=== PATIENT | female | born 1960 | race Caucasian/White ===

== ENCOUNTER 2016-08-03 15:24 | Inpatient (IN) | payer SELFPAY ==
[~2016-08-03] VITALS: Ht 182.9 cm; Wt 185.4 kg
[~2016-08-03 15:24] MED LIST: ASPIRIN 81M81 MG/TA2 PO; AVONEX33 MCG IM; CLINDAMYCI300 MG/50 IV; CLINDAMYCIN300 MG PO; CYMBALTA 60MG60 MG PO; EC NAPROSYN500 MG PO; FERROUS SULFATE; FLEXERIL 1010 MG/TAB PO; FLEXERIL10 MG PO; LEVOXYL0.3 MG PO; LIPITOR20 MG PO; MAXALT MLT5 MG PO; MEDROL 4MG DOSPA4 MG PO; MOTRIN800 MG PO; NAPROSYN500 MG PO; NAPROXEN500 M1 PO; NORCO 325 MG-51 TAB PO; PLAVIX 75MG TAB75 MG PO; ROXICODONE 55 MG/TAB PO; SIMVASTATIN40 MG PO; SYNTHROID 0.0.025 MG PO; SYNTHROID0.2 M1 PO; SYNTHROID0.3 MG PO; ULTRAM 50MG TAB50 MG PO; VITAMIN C BUFF500 MG PO; VITAMIN D NATU400 IU PO
[2016-08-03 16:37] LABS: BASO # 0.1 (0.0-0.2); BASO % 0.6 % (0.0-2.0); EOS # 0.1 (0.0-0.7); EOS % 1.4 % (0-4.0); GRAN # 5.1 (1.4-6.5); GRAN % 64.9 % (42.2-75.2); HEMATOCRIT 43.5 % (37.0-47.0); HEMOGLOBIN 14.5 g/dl (12.5-16.0); LYMPH # 2.3 (1.2-3.4); LYMPH % 29.1 % (20.0-51.0); MEAN CELL VOLUME 91 fl (80.0-100.0); MEAN CORPUSCULAR HEMOGLOBIN 30 pg (27.0-31.0); MEAN CORPUSCULAR HGB CONC 33 g/dl (33.0-37.0); MEAN PLATELET VOLUME 11.8 fl (7.4-10.4); MONO # 0.3 (0.1-0.6); MONO % 3.7 % (1.7-9.3); PLATELET COUNT 215 K/mm3 (130-400); RED BLOOD COUNT 4.79 M/mm3 (4.10-5.30); REDCELL DISTRIBUTION WIDTH-CV 13.2 % (11.5-14.5); WHITE BLOOD COUNT 7.9 K/mm3 (4.8-10.8)
[2016-08-03 16:48] LABS: ADJUSTED CALCIUM 9.5 mg/dL (8.4-10.2); ALANINE AMINOTRANSFERASE 74 U/L (9-52); ALKALINE PHOSPHATASE 133 U/L (50-136); ANION GAP 12 mmol/L (7-16); BILIRUBIN,TOTAL 0.7 mg/dL (0.0-1.0); BLOOD UREA NITROGEN 15 mg/dL (7-17); CALCIUM 9.5 mg/dL (8.4-10.2); CARBON DIOXIDE 23 mmol/L (22-30); CHLORIDE 104 mmol/L (98-107); CREATINE KINASE 82 U/L (30-135); CREATININE, serum 0.96 mg/dL (0.52-1.25); GLUCOSE 97 mg/dL (74-106); POTASSIUM 3.9 mmol/L (3.4-5.0); SODIUM 140 mmol/L (137-145); TOTAL PROTEIN 7.4 gm/dL (6.4-8.2)
[2016-08-03 16:53] LABS: INR 1.3 (0.8-3.0)
[2016-08-03 17:00] LABS: TROPONIN-I < 0.012 ng/mL (0.000-0.034)
[2016-08-03] MEDS ORDERED: SYNTHROID0.2 MG/TAB PO (17:58)
[2016-08-03 20:09] VITALS: BP 121/62; PULSE 71; TEMP 97.8
[2016-08-04] VITALS (7 sets, daily range): BP systolic 100–132; BP diastolic 32–67; PULSE 61–69; TEMP 97.7–98.5
[2016-08-05 04:17] VITALS: BP 118/59; PULSE 67; TEMP 98.3
[2016-08-05 07:33] VITALS: BP 109/61; PULSE 61; TEMP 97.8
[2016-08-05] MEDS ORDERED: PREDNISONE20 MG PO (11:36)
[2016-08-05 11:40] VITALS: BP 125/57; PULSE 67; TEMP 97.7
[2016-08-05] MEDS ORDERED: MIDRIN 325 MG-11 CAP PO (12:01)
== END 2016-08-05 12:50 | disposition home or self-care (01) | DRG 59 ==
LOC: COL.ER 15:24 → MEDICAL 17:55
PROVIDERS: Emergency Medicine; Nurse Practitioner Family
DX: G35 Multiple sclerosis (principal); Z68.43 Body mass index [BMI] 50.0-59.9, adult; I69.354 Hemiplegia and hemiparesis following cerebral infarction affecting left non-dominant side; E03.9 Hypothyroidism, unspecified; H53.8 Other visual disturbances; G43.009 Migraine without aura, not intractable, without status migrainosus; E78.5 Hyperlipidemia, unspecified; E66.01 Morbid (severe) obesity due to excess calories; Z85.850 Personal history of malignant neoplasm of thyroid; F17.210 Nicotine dependence, cigarettes, uncomplicated
CPT/HCPCS: 99222-AI; 99239; A9585; J1650; J1885; J2060; J2405; J2550; J2930; J7030; J7040

== ENCOUNTER 2017-01-06 10:49 | Emergency (ER) | payer SELFPAY ==
[~2017-01-06] VITALS: Ht 182.9 cm; Wt 181.8 kg
[~2017-01-06 10:49] MED LIST changes: +MIDRIN 325 MG-11 CAP PO; +PREDNISONE20 MG PO; +SYNTHROID0.2 MG/TAB PO
[2017-01-06 10:54] VITALS: BP 124/57; PULSE 65; TEMP 98
[2017-01-06] MEDS ORDERED: PERIDEX (CHLOR480 ML MM (11:37)
[2017-01-06] MEDS ORDERED: IBU800 M1 PO (11:37)
[2017-01-06] MEDS ORDERED: PEN-VEE K500 MG PO (11:37)
== END 2017-01-06 11:44 | disposition home or self-care (01) ==
LOC: COL.ER 10:49
DX: G89.18 Other acute postprocedural pain (principal); K06.8 Other specified disorders of gingiva and edentulous alveolar ridge; I10 Essential (primary) hypertension; E03.9 Hypothyroidism, unspecified; G35 Multiple sclerosis; F17.200 Nicotine dependence, unspecified, uncomplicated; Z86.73 Personal history of transient ischemic attack (TIA), and cerebral infarction without residual deficits; Z98.818 Other dental procedure status

== ENCOUNTER 2017-11-07 19:49 | Emergency (ER) | payer SELFPAY ==
[~2017-11-07] VITALS: Ht 180.3 cm; Wt 190.9 kg
[~2017-11-07 19:49] MED LIST changes: +IBU800 M1 PO; +PEN-VEE K500 MG PO; +PERIDEX (CHLOR480 ML MM
[2017-11-07 20:03] VITALS: TEMP 98.6
[2017-11-07 20:26] LABS: BASO # 0.1 (0.0-0.2); BASO % 0.7 % (0.0-2.0); EOS # 0.1 (0.0-0.7); EOS % 1.5 % (0-4.0); GRAN # 5.1 (1.4-6.5); GRAN % 52.5 % (42.2-75.2); HEMATOCRIT 44.8 % (37.0-47.0); HEMOGLOBIN 15.2 g/dl (12.5-16.0); LYMPH # 3.9 (1.2-3.4); LYMPH % 40.2 % (20.0-51.0); MEAN CELL VOLUME 89 fl (80.0-100.0); MEAN CORPUSCULAR HEMOGLOBIN 30 pg (27.0-31.0); MEAN CORPUSCULAR HGB CONC 34 g/dl (33.0-37.0); MEAN PLATELET VOLUME 11.1 fl (7.4-10.4); MONO # 0.5 (0.1-0.6); MONO % 4.9 % (1.7-9.3); PLATELET COUNT 241 K/mm3 (130-400); RED BLOOD COUNT 5.01 M/mm3 (4.10-5.30); REDCELL DISTRIBUTION WIDTH-CV 13.1 % (11.5-14.5)
[2017-11-07 20:33] LABS: BILIRUBIN,TOTAL 0.3 mg/dL (0.0-1.0); C-REACTIVE PROTEIN 1.9 mg/dL (0.0-0.9); CALCIUM 9.4 mg/dL (8.4-10.2); CREATININE, serum 1.06 mg/dL (0.52-1.25); POTASSIUM 4.3 mmol/L (3.4-5.0); TOTAL PROTEIN 7.7 gm/dL (6.4-8.2)
[2017-11-08 00:46] VITALS: BP 127/71; PULSE 71
== END 2017-11-07 23:10 | disposition home or self-care (01) ==
LOC: COL.ER 19:49
PROVIDERS: Family Medicine
DX: G43.909 Migraine, unspecified, not intractable, without status migrainosus (principal); G35 Multiple sclerosis; F17.210 Nicotine dependence, cigarettes, uncomplicated; Z79.82 Long term (current) use of aspirin
CPT/HCPCS: J1885; J2405; J2550; J7030

== ENCOUNTER 2018-01-01 10:40 | Emergency (ER) | payer SELFPAY ==
[~2018-01-01] VITALS: Ht 182.9 cm; Wt 181.8 kg
[2018-01-01 10:45] VITALS: TEMP 98
[2018-01-01 11:16] LABS: BASO # 0.1 (0.0-0.2); BASO % 0.6 % (0.0-2.0); EOS # 0.1 (0.0-0.7); GRAN % 69.6 % (42.2-75.2); HEMOGLOBIN 15.7 g/dl (12.5-16.0); LYMPH # 2.4 (1.2-3.4); LYMPH % 24.1 % (20.0-51.0); MEAN CELL VOLUME 89 fl (80.0-100.0); MEAN CORPUSCULAR HEMOGLOBIN 30 pg (27.0-31.0); MEAN CORPUSCULAR HGB CONC 33 g/dl (33.0-37.0); MEAN PLATELET VOLUME 11.5 fl (7.4-10.4); MONO # 0.4 (0.1-0.6); MONO % 4.3 % (1.7-9.3); PLATELET COUNT 237 K/mm3 (130-400); RED BLOOD COUNT 5.31 M/mm3 (4.10-5.30); REDCELL DISTRIBUTION WIDTH-CV 12.8 % (11.5-14.5)
[2018-01-01 11:17] LABS: INR 0.9 (0.8-3.0); PROTHROMBIN TIME 10.7 SECONDS (9.7-12.8)
[2018-01-01] MEDS ORDERED: SYNTHROID0.3 MG PO (11:18)
[2018-01-01 11:20] LABS: PARTIAL THROMBOPLASTIN TIME 39.6 SECONDS (26.0-37.0)
[2018-01-01 11:21] LABS: ALANINE AMINOTRANSFERASE 47 U/L (9-52); ALBUMIN 3.9 gm/dL (3.5-5.0); ALKALINE PHOSPHATASE 144 U/L (50-136); ANION GAP 11 mmol/L (7-16); AST,SGOT 32 U/L (15-37); BILIRUBIN,TOTAL 0.4 mg/dL (0.0-1.0); BLOOD UREA NITROGEN 14 mg/dL (7-17); CALCIUM 9.7 mg/dL (8.4-10.2); CARBON DIOXIDE 22 mmol/L (22-30); CHLORIDE 104 mmol/L (98-107); CREATININE, serum 0.91 mg/dL (0.52-1.25); GLUCOSE 114 mg/dL (74-106); LIPASE 35 U/L (23-300); POTASSIUM 4.5 mmol/L (3.4-5.0); SODIUM 138 mmol/L (137-145); TOTAL PROTEIN 7.9 gm/dL (6.4-8.2)
[2018-01-01 11:34] LABS: TROPONIN-I < 0.012 ng/mL (0.000-0.034)
[2018-01-01 12:10] LABS: COLLECTION METHOD CLEAN CATCH
[2018-01-01 12:27] LABS: MUCOUS Present /lpf; PH 5 (5-8); SQUAMOUS EPITHELIAL 0-2 /hpf; URINE APPEARANCE Clear; URINE BACTERIA Many /hpf; URINE BILIRUBIN Negative (NEGATIVE); URINE BLOOD 1+ (NEGATIVE); URINE COLOR Yellow; URINE GLUCOSE Negative (NEGATIVE); URINE KETONE Negative (NEGATIVE); URINE LEUKOCYTE ESTERASE 1+ (NEGATIVE); URINE NITRATE Positive (NEGATIVE); URINE PROTEIN(semi-quant) Negative (NEGATIVE); URINE UROBILINOGEN Negative (NEGATIVE)
[2018-01-01] MEDS ORDERED: CEFTIN500 MG PO (12:48)
[2018-01-01] MEDS ORDERED: PHENERGAN 25 TA25 MG PO (14:37)
[2018-01-01 15:31] VITALS: BP 130/72; PULSE 92
== END 2018-01-01 15:42 | disposition home or self-care (01) ==
LOC: COL.ER 10:40
PROVIDERS: Emergency Medicine
DX: N39.0 Urinary tract infection, site not specified (principal); G35 Multiple sclerosis; Z90.49 Acquired absence of other specified parts of digestive tract; Z90.710 Acquired absence of both cervix and uterus; Z86.73 Personal history of transient ischemic attack (TIA), and cerebral infarction without residual deficits; Z79.82 Long term (current) use of aspirin
CPT/HCPCS: J2405

== ENCOUNTER 2019-07-03 11:01 | Emergency (ER) | payer SELFPAY ==
[~2019-07-03] VITALS: Ht 182.9 cm; Wt 193.2 kg
[~2019-07-03 11:01] MED LIST changes: +CEFTIN500 MG PO; +PHENERGAN 25 TA25 MG PO
[2019-07-03 11:07] VITALS: TEMP 97
[2019-07-03 15:36] VITALS: BP 158/84; PULSE 68
== END 2019-07-03 15:39 | disposition home or self-care (01) ==
LOC: COL.ER 11:01
DX: G43.909 Migraine, unspecified, not intractable, without status migrainosus (principal); H53.9 Unspecified visual disturbance; E03.9 Hypothyroidism, unspecified; Z90.89 Acquired absence of other organs; Z86.73 Personal history of transient ischemic attack (TIA), and cerebral infarction without residual deficits; Z79.82 Long term (current) use of aspirin
CPT/HCPCS: C9113; J1885; J2060; J2550; J2930; J7030; J7050

== ENCOUNTER 2020-08-30 13:38 | Emergency (ER) | payer SELFPAY ==
[~2020-08-30] VITALS: Ht 182.9 cm; Wt 186.4 kg
[2020-08-30 13:50] VITALS: TEMP 98.1
[2020-08-30 16:10] VITALS: BP 148/96; PULSE 84
[2020-08-31 12:21] LABS: ALANINE AMINOTRANSFERASE 35 U/L (4-34); ALBUMIN 4.1 gm/dL (3.5-5.0); ALKALINE PHOSPHATASE 130 U/L (50-136); ANION GAP 6 mmol/L (7-16); AST,SGOT 40 U/L (15-37); BILIRUBIN,TOTAL 0.6 mg/dL (0.0-1.0); BLOOD UREA NITROGEN 15 mg/dL (7-17); CALCIUM 9.3 mg/dL (8.4-10.2); CARBON DIOXIDE 25 mmol/L (22-30); CHLORIDE 107 mmol/L (98-107); CREATININE, serum 0.81 (0.52-1.25); GLUCOSE 173 mg/dL (74-106); POTASSIUM 4.5 mmol/L (3.4-5.0); SODIUM 139 mmol/L (137-145); TOTAL PROTEIN 7.5 gm/dL (6.4-8.2); TROPONIN-I < 0.012 ng/mL (0.000-0.035); TSH w REFLEX 0.446 uIU/mL (0.465-4.680)
[2020-08-31 12:22] LABS: INR 0.9 (0.8-3.0); PARTIAL THROMBOPLASTIN TIME 35.2 SECONDS (26.0-37.0); PROTHROMBIN TIME 10.1 SECONDS (9.7-12.8)
[2020-08-31 14:59] LABS: BASO # 0.1 (0.0-0.2); BASO % 0.7 % (0.0-2.0); EOS # 0.1 (0.0-0.7); EOS % 1.3 % (0-4.0); GRAN # 6.7 (1.4-6.5); GRAN % 64.2 % (42.2-75.2); HEMATOCRIT 47.1 % (37.0-47.0); HEMOGLOBIN 15.6 g/dl (12.5-16.0); LYMPH # 3.1 (1.2-3.4); LYMPH % 29.2 % (20.0-51.0); MEAN CELL VOLUME 90 fl (80.0-100.0); MEAN CORPUSCULAR HEMOGLOBIN 30 pg (27.0-31.0); MEAN CORPUSCULAR HGB CONC 33 g/dl (33.0-37.0); MONO # 0.4 (0.1-0.6); MONO % 4.2 % (1.7-9.3); PLATELET COUNT 277 K/mm3 (130-400); RED BLOOD COUNT 5.24 M/mm3 (4.10-5.30); REDCELL DISTRIBUTION WIDTH-CV 13.5 % (11.5-14.5)
== END 2020-08-30 16:10 | disposition left against medical advice (07) ==
LOC: COL.ER 13:38
PROVIDERS: Emergency Medicine
DX: R53.1 Weakness (principal); R51.9 Headache, unspecified; G20 Parkinson's disease; Z86.73 Personal history of transient ischemic attack (TIA), and cerebral infarction without residual deficits; Z79.82 Long term (current) use of aspirin
CPT/HCPCS: J2405; Q9967

== ENCOUNTER 2022-03-27 13:15 | Emergency (ER) | payer SELFPAY ==
[~2022-03-27] VITALS: Ht 182.9 cm; Wt 181.8 kg
[2022-03-27 13:31] VITALS: TEMP 98.3
[2022-03-27 13:54] LABS: COLLECTION METHOD CLEAN CATCH
[2022-03-27 13:59] LABS: PH 5.5 (5.0-8.5); URINE APPEARANCE Clear (CLEAR/HAZY); URINE COLOR Yellow (YELLOW); URINE GLUCOSE Negative (NEGATIVE); URINE KETONE Negative (NEGATIVE); URINE PROTEIN(semi-quant) Negative (NEGATIVE)
[2022-03-27 14:00] LABS: URINE BLOOD TRACE-LYSED (NEGATIVE); URINE NITRATE Negative (NEGATIVE); URINE UROBILINOGEN 0.2 E.U/dL (0.2-1.0)
[2022-03-27 14:02] LABS: SQUAMOUS EPITHELIAL 0-2 /hpf (0-10); URINE BACTERIA Rare /hpf (NONE SEEN); URINE RBC 0-2 /hpf (0-2)
[2022-03-27 14:32] LABS: BASO # 0.1 K/mm3 (0.0-0.2); BASO % 0.5 % (0.0-2.0); EOS # 0.1 K/mm3 (0.0-0.7); EOS % 0.7 % (0.0-4.0); GRAN # 7.4 K/mm3 (1.4-6.5); GRAN % 69.2 % (42.2-75.2); HEMATOCRIT 48.2 % (37.0-47.0); HEMOGLOBIN 16.9 g/dl (12.5-16.0); LYMPH # 2.7 K/mm3 (1.2-3.4); LYMPH % 25.6 % (20.0-51.0); MEAN CELL VOLUME 88 fl (80.0-100.0); MEAN CORPUSCULAR HEMOGLOBIN 31 pg (27-31); MEAN CORPUSCULAR HGB CONC 35 g/dl (33.0-37.0); MEAN PLATELET VOLUME 11.2 fl (7.4-10.4); MONO # 0.4 K/mm3 (0.1-0.6); MONO % 3.7 % (1.7-9.3); PLATELET COUNT 306 K/mm3 (130-400); RED BLOOD COUNT 5.48 M/mm3 (4.10-5.30); REDCELL DISTRIBUTION WIDTH-CV 13.2 % (11.5-14.5)
[2022-03-27 14:52] LABS: ALANINE AMINOTRANSFERASE 37 U/L (0-55); ALBUMIN 3.9 gm/dL (3.5-5.0); ALKALINE PHOSPHATASE 154 U/L (40-150); ANION GAP 11 mmol/L (7-16); AST,SGOT 38 U/L (5-34); BILIRUBIN,TOTAL 0.5 mg/dL (0.2-1.2); BLOOD UREA NITROGEN 15 mg/dL (10-20); C-REACTIVE PROTEIN 3.35 mg/dL (0.00-0.50); CALCIUM 9.8 mg/dL (8.4-10.2); CARBON DIOXIDE 21 mmol/L (22-29); CHLORIDE 106 mmol/L (98-107); CREATININE, serum 0.89 mg/dL (0.57-1.11); GLUCOSE 128 mg/dL (70-99); POTASSIUM 4.4 mmol/L (3.5-4.5); SODIUM 138 mmol/L (136-145); TOTAL PROTEIN 8.2 gm/dL (6.2-8.1)
[2022-03-27 15:01] LABS: TROPONIN-I < 0.010 ng/mL (0.00-0.033)
[2022-03-27 15:34] LABS: ACETAMINOPHEN < 1.0 ug/mL (10-30); SALICYLATE < 5.0 mg/dL (15.0-30.0)
[2022-03-27 16:48] LABS: TRICYCLIC ANTIDEPRESS URINE NEGATIVE
[2022-03-27] MEDS ORDERED: ATIVAN 1MG T1 MG/TAB PO (17:16)
[2022-03-27 19:55] VITALS: BP 127/86; PULSE 97
== END 2022-03-27 19:56 | disposition home or self-care (01) ==
LOC: COL.ER 13:15
PROVIDERS: Nurse Practitioner
DX: R53.83 Other fatigue (principal); F41.9 Anxiety disorder, unspecified; F17.210 Nicotine dependence, cigarettes, uncomplicated
CPT/HCPCS: J2060